=== PATIENT | male | born 1965 | race Caucasian/White ===

== ENCOUNTER → 2016-08-25 | Outpatient (CLI) | payer BC | LOC: LAB 09:55 | DX: Z00.00 Encounter for general adult medical examination without abnormal findings (principal); Z12.5 Encounter for screening for malignant neoplasm of prostate; E11.9 Type 2 diabetes mellitus without complications ==

== ENCOUNTER → 2017-02-24 | Outpatient (CLI) | payer BC | LOC: LAB 07:50 | DX: E11.8 Type 2 diabetes mellitus with unspecified complications (principal) ==

== ENCOUNTER → 2017-08-24 | Outpatient (CLI) | payer BC ==
[2017-08-24 10:23] LABS: EOS # 0.3 (0.04-0.40); EOS % 3.5 % (0.0-4.0); HEMATOCRIT 43.7 % (42.0-52.0); HEMOGLOBIN 15.1 g/dL (13.5-18.0); LYMPH# 2.9 (1.50-4.00); MEAN CELL VOLUME 87 fl (78-100); MEAN CORPUSCULAR HEMOGLOBIN 30 pg (27-31); MEAN CORPUSCULAR HGB CONC 35 g/dL (33-37); MEAN PLATELET VOLUME 10.6 fl (7.4-10.4); MONO # 0.7 (0.20-0.80); NEU # 4.4 (1.40-6.50); PLATELET COUNT 230 K/mm3 (130-400); RED BLOOD COUNT 5.03 M/mm3 (4.20-5.60); RED CELL DISTRIBUTION WIDTH 12.8 % (11.5-14.5); WHITE BLOOD COUNT 8.3 K/mm3 (4.8-10.8)
[2017-08-24 11:56] LABS: ALBUMIN 3.8 g/dL (3.5-5.0); BUN/CREATININE RATIO 13.8 (6.0-26.0); CALCIUM 9.1 mg/dL (8.4-10.2); POTASSIUM 4.4 mmol/L (3.6-5.0); TOTAL BILIRUBIN 1.4 mg/dL (0.2-1.3); TOTAL PROTEIN 6.8 g/dL (6.3-8.2)
== END ==
LOC: LAB 09:36
PROVIDERS: Nurse Practitioner Family
DX: Z00.00 Encounter for general adult medical examination without abnormal findings (principal); E11.9 Type 2 diabetes mellitus without complications; I10 Essential (primary) hypertension; G47.33 Obstructive sleep apnea (adult) (pediatric)

== ENCOUNTER → 2018-02-08 | Outpatient (CLI) | payer BC | LOC: LAB 09:11 | DX: E11.9 Type 2 diabetes mellitus without complications (principal) ==

== ENCOUNTER → 2018-08-22 | Outpatient (CLI) | payer BC | LOC: RAD 13:20 | DX: M19.012 Primary osteoarthritis, left shoulder (principal) ==

== ENCOUNTER → 2018-08-30 | Outpatient (CLI) | payer BC ==
[2018-08-30 09:58] LABS: EOS # 0.2 (0.04-0.40); EOS % 3.7 % (0.0-4.0); HEMATOCRIT 45.1 % (42.0-52.0); HEMOGLOBIN 15.5 g/dL (13.5-18.0); LYMPH# 2.8 (1.50-4.00); MEAN CELL VOLUME 86 fl (78-100); MEAN CORPUSCULAR HEMOGLOBIN 30 pg (27-31); MEAN CORPUSCULAR HGB CONC 34 g/dL (33-37); MEAN PLATELET VOLUME 11.1 fl (7.4-10.4); MONO # 0.7 (0.20-0.80); NEU # 2.8 (1.40-6.50); PLATELET COUNT 239 K/mm3 (130-400); RED BLOOD COUNT 5.24 M/mm3 (4.20-5.60); RED CELL DISTRIBUTION WIDTH 12.7 % (11.5-14.5); WHITE BLOOD COUNT 6.6 K/mm3 (4.8-10.8)
[2018-08-30 10:05] LABS: ALBUMIN 4.3 g/dL (3.5-5.0); CALCIUM 9.3 mg/dL (8.4-10.2); POTASSIUM 4.1 mmol/L (3.6-5.0); TOTAL PROTEIN 7.2 g/dL (6.3-8.2)
== END ==
LOC: LAB 08:49
PROVIDERS: Physician Assistant
DX: Z00.00 Encounter for general adult medical examination without abnormal findings (principal); I73.9 Peripheral vascular disease, unspecified; I10 Essential (primary) hypertension; M25.512 Pain in left shoulder; G47.33 Obstructive sleep apnea (adult) (pediatric); Z72.0 Tobacco use

== ENCOUNTER → 2018-11-23 | Outpatient (CLI) | payer BC | LOC: LAB 08:48 | DX: E11.9 Type 2 diabetes mellitus without complications (principal) ==

== ENCOUNTER → 2019-02-28 | Outpatient (CLI) | payer BC | LOC: LAB 10:31 | DX: E11.21 Type 2 diabetes mellitus with diabetic nephropathy (principal) ==

== ENCOUNTER → 2019-06-05 | Outpatient (CLI) | payer BC ==
[2019-06-05 09:45] LABS: POTASSIUM 4.2 mmol/L (3.5-5.1)
[2019-06-05 09:47] LABS: CALCIUM 9.7 mg/dL (8.3-10.5)
[2019-06-05 09:48] LABS: TOTAL PROTEIN 6.9 g/dL (6.4-8.3)
[2019-06-05 09:50] LABS: TOTAL BILIRUBIN 1.1 mg/dL (0.2-1.2)
== END ==
LOC: LAB 09:27
PROVIDERS: Physician Assistant
DX: E11.21 Type 2 diabetes mellitus with diabetic nephropathy (principal); I10 Essential (primary) hypertension

== ENCOUNTER → 2020-04-01 | Outpatient (CLI) | payer BC | LOC: LAB 10:22 | DX: Z02.4 Encounter for examination for driving license (principal); Z13.89 Encounter for screening for other disorder; E11.9 Type 2 diabetes mellitus without complications; I10 Essential (primary) hypertension; K02.9 Dental caries, unspecified; G47.33 Obstructive sleep apnea (adult) (pediatric); Z72.0 Tobacco use ==

== ENCOUNTER 2021-03-19 18:20 | Emergency (ER) | payer BC ==
[~2021-03-19] VITALS: Ht 182.9 cm; Wt 134.2 kg
[2021-03-19] MEDS ORDERED: METFOMIN HYDRO850 MG PO (18:52)
[2021-03-19] MEDS ORDERED: JARDIANCE25 MG PO (18:53)
[2021-03-19] MEDS ORDERED: LISINOPRIL AND1 TA1 PO (18:53)
[2021-03-19] MEDS ORDERED: JANUVIA50 MG PO (18:53)
[2021-03-19] MEDS ORDERED: ATORVASTATIN CA40 MG PO (18:53)
[2021-03-19 19:17] LABS: HEMATOCRIT 46.5 % (42.0-52.0); HEMOGLOBIN 16.1 g/dL (13.5-18.0); MEAN CELL VOLUME 88 fl (78-100); WHITE BLOOD COUNT 10.4 K/mm3 (4.8-10.8)
[2021-03-19 19:18] LABS: MEAN CORPUSCULAR HEMOGLOBIN 30 pg (27-31); MEAN CORPUSCULAR HGB CONC 35 g/dL (33-37); MEAN PLATELET VOLUME 9.8 fl (7.4-10.4); PLATELET COUNT 282 K/mm3 (130-400); RED CELL DISTRIBUTION WIDTH 12.6 % (11.5-14.5)
[2021-03-19 19:19] LABS: BASO # 0.01 (0.02-0.10); EOS # 0.12 (0.04-0.40); EOS % 1.2 % (0.0-4.0); LYMPH# 2.28 (1.50-4.00); NEU # 6.42 (1.40-6.50)
[2021-03-19 19:26] LABS: URINE APPEARANCE HAZY; URINE BILIRUBIN NEGATIVE (NEGATIVE); URINE BLOOD 250 ery/uL (NEGATIVE); URINE COLOR YELLOW; URINE LEUKOCYTE ESTERASE TRACE (NEGATIVE); URINE NITRATE NEGATIVE (NEGATIVE); URINE PROTEIN(semi-quant) 1+ mg/dL (NEGATIVE); URINE UROBILINOGEN NORMAL (NORMAL)
[2021-03-19 19:27] LABS: URINE MUCUS PRESENT (NOT PRESENT)
[2021-03-19 19:28] LABS: URINE KETONE NEGATIVE (NEGATIVE)
[2021-03-19 19:31] LABS: CALCIUM 10.2 mg/dL (8.3-10.5)
[2021-03-19] MEDS ORDERED: MACROBID 100 M100 MG PO (19:55)
[2021-03-19 20:05] VITALS: BP 143/78
--- NOTE | 2021-03-24 13:16 | NUR ---
I contacted the patient in regards to his urine culture results. HUBER Hernandez sent an order to [facility] on 03/23/21 for cefdinir 300mg BID X 7 days. Lashae also instructs for the patient to stop the macrobid and to follow up with his PCP in one week for a repeat UA. I verbalize all of these instructions to the patient and he verbalizes understanding. The patient denies any questions at this time.
== END 2021-03-19 20:05 | disposition home or self-care (01) ==
LOC: ED 18:20
PROVIDERS: Family Medicine
DX: N39.0 Urinary tract infection, site not specified (principal); E11.9 Type 2 diabetes mellitus without complications; I10 Essential (primary) hypertension; E78.5 Hyperlipidemia, unspecified; F17.220 Nicotine dependence, chewing tobacco, uncomplicated; Z79.84 Long term (current) use of oral hypoglycemic drugs; Z79.899 Other long term (current) drug therapy

== ENCOUNTER → 2021-04-14 | Outpatient (CLI) | payer BC ==
[~2021-04-14] MED LIST: ATORVASTATIN CA40 MG PO; JANUVIA50 MG PO; JARDIANCE25 MG PO; LISINOPRIL AND1 TA1 PO; MACROBID 100 M100 MG PO; METFOMIN HYDRO850 MG PO
[2021-04-14 09:37] LABS: BASO # 0.04 K/mm3 (0.02-0.10); EOS # 0.23 K/mm3 (0.04-0.40); EOS % 2.7 % (0.0-4.0); HEMATOCRIT 49.2 % (42.0-52.0); HEMOGLOBIN 16.9 g/dL (13.5-18.0); LYMPH# 3.41 K/mm3 (1.50-4.00); MEAN CELL VOLUME 88 fl (78-100); MEAN CORPUSCULAR HEMOGLOBIN 30 pg (27-31); MEAN CORPUSCULAR HGB CONC 34 g/dL (33-37); MEAN PLATELET VOLUME 9.8 fl (7.4-10.4); NEU # 4.15 K/mm3 (1.40-6.50); PLATELET COUNT 270 K/mm3 (130-400); RED BLOOD COUNT 5.57 M/mm3 (4.20-5.60); RED CELL DISTRIBUTION WIDTH 12.8 % (11.5-14.5); WHITE BLOOD COUNT 8.7 K/mm3 (4.8-10.8)
[2021-04-14 09:51] LABS: ALBUMIN 4.2 g/dL (3.5-5.0); POTASSIUM 3.9 mmol/L (3.5-5.1)
[2021-04-14 09:52] LABS: CALCIUM 10.1 mg/dL (8.3-10.5)
[2021-04-14 09:54] LABS: TOTAL PROTEIN 7.6 g/dL (6.4-8.3)
[2021-04-14 09:56] LABS: TOTAL BILIRUBIN 2.7 mg/dL (0.2-1.2)
[2021-04-14 10:01] LABS: URINE APPEARANCE CLEAR; URINE BILIRUBIN NEGATIVE (NEGATIVE); URINE BLOOD NEGATIVE (NEGATIVE); URINE COLOR YELLOW; URINE KETONE NEGATIVE (NEGATIVE); URINE LEUKOCYTE ESTERASE NEGATIVE (NEGATIVE); URINE NITRATE NEGATIVE (NEGATIVE); URINE PROTEIN(semi-quant) NEGATIVE (NEGATIVE); URINE UROBILINOGEN NORMAL (NORMAL); URINE WBC 0-1 /hpf (0-3)
== END ==
LOC: LAB 09:19
PROVIDERS: Physician Assistant
DX: Z00.00 Encounter for general adult medical examination without abnormal findings (principal); Z12.5 Encounter for screening for malignant neoplasm of prostate; Z13.29 Encounter for screening for other suspected endocrine disorder; E11.9 Type 2 diabetes mellitus without complications; I10 Essential (primary) hypertension

== ENCOUNTER → 2023-08-12 | Outpatient (CLI) | payer BC | LOC: LAB 11:38 | DX: E11.9 Type 2 diabetes mellitus without complications (principal) ==

== ENCOUNTER → 2023-11-15 | Outpatient (CLI) | payer BC | LOC: LAB 06:21 | DX: E11.9 Type 2 diabetes mellitus without complications (principal) ==

== ENCOUNTER → 2024-05-08 | Outpatient (CLI) | payer BC | LOC: LAB 05:58 | DX: E11.9 Type 2 diabetes mellitus without complications (principal) ==

== ENCOUNTER → 2024-08-09 | Outpatient (CLI) | payer BC ==
[2024-08-09 06:13] LABS: BASO # 0.03 K/mm3 (0.02-0.10); EOS # 0.27 K/mm3 (0.04-0.40); EOS % 3.4 % (0.0-4.0); HEMATOCRIT 45.2 % (42.0-52.0); HEMOGLOBIN 15.9 g/dL (13.5-18.0); LYMPH# 2.92 K/mm3 (1.50-4.00); MEAN CELL VOLUME 89 fl (78-100); MEAN CORPUSCULAR HEMOGLOBIN 31 pg (27-31); MEAN CORPUSCULAR HGB CONC 35 g/dL (33-37); MEAN PLATELET VOLUME 10.5 fl (7.4-10.4); MONO # 0.62 K/mm3 (0.20-0.80); NEU # 4.03 K/mm3 (1.40-6.50); PLATELET COUNT 258 K/mm3 (130-400); RED BLOOD COUNT 5.06 M/mm3 (4.20-5.60); RED CELL DISTRIBUTION WIDTH 12.1 % (11.5-14.5); WHITE BLOOD COUNT 7.9 K/mm3 (4.8-10.8)
[2024-08-09 06:20] LABS: ALBUMIN 3.9 g/dL (3.5-5.0)
[2024-08-09 06:22] LABS: CALCIUM 9.2 mg/dL (8.3-10.5)
[2024-08-09 06:23] LABS: TOTAL PROTEIN 6.9 g/dL (6.4-8.3)
== END ==
LOC: LAB 05:19
PROVIDERS: Physician Assistant
DX: Z12.5 Encounter for screening for malignant neoplasm of prostate (principal); Z13.29 Encounter for screening for other suspected endocrine disorder; I10 Essential (primary) hypertension; K90.9 Intestinal malabsorption, unspecified; E11.9 Type 2 diabetes mellitus without complications; E78.5 Hyperlipidemia, unspecified

== ENCOUNTER → 2024-08-14 | Outpatient (CLI) | payer BC | LOC: RAD 15:43 | DX: M19.011 Primary osteoarthritis, right shoulder (principal); M19.021 Primary osteoarthritis, right elbow ==